=== PATIENT | male | born 1955 | race Caucasian/White ===

== ENCOUNTER → 2018-05-12 | Outpatient (CLI) | payer OTHER ==
[~2018-05-12] MED LIST: ASPI-757 PO; ATOR20TA65 PO; CHOL100059 PO; HYDR-2966 PO; LISI-355 PO; LISI-374 PO; METF-452 PO; MULT1CAP59 PO; PRAV40TA78 PO; SAXA5TAB4 PO; SITA100T PO
--- NOTE | 2018-05-15 09:53 | RADIOLOGY IMAGING REPORT ---
FACILITY: [facility] [place] PATIENT NAME: Abilio Arzola : 1955 MR: [id number] V: [id number] EXAM DATE: ORDERING PHYSICIAN: JHONATHAN BURT TECHNOLOGIST: Location: [facility] Patient: Abilio Arzola : 1955 Visit/Account:[id number] Date of Sevice: 05/12/2018 Exam type: US ANKLE BRACHIAL INDICES History: diminished pedal pulse Comparison: None. Findings: Segmental pressure in the right brachial artery is 125 mmHg. Segmental pressure in the right posteri or tibial artery is 172 mmHg. Segmental pressure in the right dorsalis pedis artery is 143 mmHg. Se gmental pressure in the right great toe is 108 mmHg. FROY on the right is 1.32 and the TBI on the right is 0.83 The segmental pressure in the left brachial artery is 130 mmHg. Segmental pressure in the left poste rior tibial artery is 165 mmHg. Segmental pressure in the left dorsalis pedis artery is 156 millers of mercury. Segmental pressure in the left great toe is 135 mmHg. The FROY on the left is 1.27 and the TBI on the left is 1.04 IMPRESSION: 1. TBI on the right is 1.32 and the TBI on the right is 0.83 FROY on the left is 1.27 and TBI on the left is 1.04 Report Dictated By: Blossom Donnelly MD at 05/15/2018 9:46 AM Report E-Signed By: Blossom Donnelly MD at 05/15/2018 9:48 AM WSN:[id number]
== END ==
LOC: US 02:39
PROVIDERS: ATTEND Nurse Practitioner Family
DX: I70.0 Atherosclerosis of aorta (principal); I71.4 Abdominal aortic aneurysm, without rupture; I35.0 Nonrheumatic aortic (valve) stenosis; I35.1 Nonrheumatic aortic (valve) insufficiency
CPT/HCPCS: 93306; 93922